=== PATIENT | male | born 1965 | race Two or more races ===

== ENCOUNTER 2020-07-02 07:47 | Emergency (ER) | payer OTHER ==
[~2020-07-02] VITALS: Ht 170.2 cm; Wt 81.2 kg
[~2020-07-02 07:47] MED LIST: ATENPOW10 PO; GABA250S2 PO; LISI40TA11 PO; [UNRECOGNIZED DRUG - CODE] PO
[2020-07-02] MEDS ORDERED: LORazepam 2MG/ML-1ML VIAL ONE (08:10)
[2020-07-02] MEDS ORDERED: SODIUM CHLORIDE 0.9% 1,000 ML IV ONE (08:15)
[2020-07-02] MEDS ORDERED: LORazepam 2MG/ML-1ML VIAL IV ONE (08:45)
[2020-07-02 08:53] LABS: Hematocrit 42.9 % (41.0-53.0); Hemoglobin 14.8 g/dL (13.5-17.5); Mean Corpuscular Hemoglobin 32.7 pg (28.0-32.0); Mean Corpuscular Hgb Conc. 34.6 g/dL (32.0-36.0); Mean Corpuscular Volume 94.5 fL (80.0-100.0); Platelet Count (auto) 315 10^3/uL (140-450); Red Blood Cells 4.54 10^6/uL (4.5-5.90); Red Cell Distribution Width 14.2 % (11.8-14.3); White Blood Cell 10.9 10^3/uL (4.4-10.8)
[2020-07-02 08:56] LABS: Band Neutrophils % (manual) 0; Basophils % (manual) 0 (0.0-2.0); Blast Cells 0; Metamyelocytes % 0; Myelocytes % 0; Promyelocytes % 0; Reactive Lymphocytes 0
[2020-07-02 09:14] LABS: Potassium 4.3 mmol/L (3.5-5.1)
[2020-07-02] MEDS ORDERED: KETOROLAC TROMETH 30 MG/ML 1ML VIAL IV ONE (09:15)
[2020-07-02 09:16] LABS: Urine Bacteria NONE SEEN /hpf (None Seen); Urine Blood Negative /uL (Negative); Urine Specific Gravity 1.015 (1.001-1.035); Urine WBC <1 /hpf (0 - 3)
[2020-07-02 09:22] LABS: Albumin 4.3 g/dL (3.4-5.0); BUN/Creatinine Ratio 16.8; Bilirubin, Total 0.8 mg/dL (0.2-1.0); Calcium 8.9 mg/dL (8.5-10.1); Magnesium 2.4 mg/dL (1.6-2.6); Total Protein 8.6 g/dL (6.4-8.2)
[2020-07-02 09:26] LABS: Eosinophils % (manual) 1 (0-7); Lymphocytes % (manual) 59 (10.0-50.0); Monocytes % (manual) 5 (0-12)
[2020-07-02 09:34] LABS: Alcohol, Urine < 3.0 mg/dL (0-10); Amphetamine Screen, Urine NEGATIVE (NEGATIVE); Barbiturate Scree,Urine NEGATIVE (NEGATIVE); Benzodiazephine Screen, Urine NEGATIVE (NEGATIVE); Cannabinoid Screen, Urine NEGATIVE (NEGATIVE); Cocaine Screen, Urine NEGATIVE (NEGATIVE); Opiate Scree,Urine NEGATIVE (NEGATIVE); Phencyclidine Screen, Urine NEGATIVE (NEGATIVE)
[2020-07-02] MEDS ORDERED: PHENYTOIN IV DILANTIN 1,000 MG in SODIUM CHL 0.9% 250 ML IV ONE (10:00)
[2020-07-02 11:45] VITALS: BP 123/79
== END 2020-07-02 11:49 ==
LOC: EDBD 07:47 → EEVIPCON 07:47 → ER 07:47
DX: G40.909 Epilepsy, unspecified, not intractable, without status epilepticus (principal); I10 Essential (primary) hypertension; R74.8 Abnormal levels of other serum enzymes; M47.22 Other spondylosis with radiculopathy, cervical region; M54.5 Low back pain; G89.29 Other chronic pain
CPT/HCPCS: 36415; 70450; 71046; 72125; 80053; 80185; 80307; 81001; 83735; 85007; 85027; 96361; 96365; 96366; 96375; 99285; J1165; J1885; J2060; J7050